=== PATIENT | female | born 1990 ===

== ENCOUNTER 2021-03-21 12:45 | Inpatient (IN) | payer OTHER ==
[~2021-03-21] VITALS: Ht 157.5 cm; Wt 72.6 kg
== END 2021-03-31 18:14 | disposition home or self-care (01) | DRG 807 ==
LOC: LDR 03-29 03:26 → SURG-SUITE 03-29 03:26 → OB/GYN 03-29 11:57 → SURG-SUITE 03-29 13:43 → SURH 04-02 12:45
PROVIDERS: ADMIT Obstetrics & Gynecology Maternal & Fetal Medicine; ATTEND Obstetrics & Gynecology Maternal & Fetal Medicine
PROC: 10E0XZZ Delivery of Products of Conception, External Approach (ICD-10-PCS; principal; 2021-03-29)
PROC: 0KQM0ZZ Repair Perineum Muscle, Open Approach (ICD-10-PCS; 2021-03-29)
PROC: 4A1HXFZ Monitoring of Products of Conception, Cardiac Rhythm, External Approach (ICD-10-PCS; 2021-03-29)
DX: O70.9 Perineal laceration during delivery, unspecified (principal); Z37.0 Single live birth; Z3A.39 39 weeks gestation of pregnancy; Z20.822 Contact with and (suspected) exposure to COVID-19

== ENCOUNTER 2021-03-28 10:04 | Outpatient (CLI) | payer OTHER | END 2021-03-28 11:04 | disposition home or self-care (01) | LOC: NST 10:04 | PROVIDERS: ATTEND Obstetrics & Gynecology Maternal & Fetal Medicine | DX: Z34.83 Encounter for supervision of other normal pregnancy, third trimester (principal) ==

== ENCOUNTER 2023-03-06 10:26 | Inpatient (IN) | payer OTHER ==
[~2023-03-06] VITALS: Ht 157.5 cm; Wt 68.0 kg
[2023-04-01] MEDS ORDERED: PRENATAL TABLE1 EAC1 PO (08:52)
== END 2023-04-03 13:14 | disposition home or self-care (01) | DRG 807 ==
LOC: OB/GYN 03-27 12:45 → LDR 04-01 05:43 → OB/GYN 04-01 11:45
PROVIDERS: ADMIT Obstetrics & Gynecology Maternal & Fetal Medicine; ATTEND Obstetrics & Gynecology Maternal & Fetal Medicine
PROC: 10E0XZZ Delivery of Products of Conception, External Approach (ICD-10-PCS; principal; 2023-04-01)
PROC: 0HQ9XZZ Repair Perineum Skin, External Approach (ICD-10-PCS; 2023-04-01)
PROC: 4A1HXCZ Monitoring of Products of Conception, Cardiac Rate, External Approach (ICD-10-PCS; 2023-04-01)
DX: O70.0 First degree perineal laceration during delivery (principal); Z37.0 Single live birth; Z3A.39 39 weeks gestation of pregnancy; Z20.822 Contact with and (suspected) exposure to COVID-19

== ENCOUNTER 2023-03-13 08:52 | Outpatient (CLI) | payer OTHER | END 2023-03-13 09:47 | disposition home or self-care (01) | LOC: NST 08:52 | PROVIDERS: ATTEND Obstetrics & Gynecology | DX: Z34.83 Encounter for supervision of other normal pregnancy, third trimester (principal) ==

== ENCOUNTER 2023-03-18 12:08 | Outpatient (CLI) | payer OTHER | END 2023-03-18 13:12 | disposition home or self-care (01) | LOC: NST 12:08 | PROVIDERS: ATTEND Obstetrics & Gynecology Gynecology | DX: Z34.83 Encounter for supervision of other normal pregnancy, third trimester (principal) ==

== ENCOUNTER 2023-03-23 15:09 | Outpatient (CLI) | payer OTHER ==
[~2023-03-23] VITALS: Ht 157.5 cm; Wt 68.0 kg
== END 2023-03-23 17:45 | disposition home or self-care (01) ==
LOC: OBS/DEL 15:09
PROVIDERS: ATTEND Obstetrics & Gynecology Gynecology
DX: O26.893 Other specified pregnancy related conditions, third trimester (principal); R10.2 Pelvic and perineal pain; Z3A.39 39 weeks gestation of pregnancy